=== PATIENT | male | born 1970 | race Caucasian/White ===

== ENCOUNTER → 2016-07-05 | Outpatient (CLI) | payer BC ==
[~2016-07-05] MED LIST: HYDROCODONE BIT1 T11 PO; NORCO 325 MG-51 TAB PO; PRILOSEC20 MG PO; TYLENOL325 M1 PO; VOLTAREN50 M1 PO; Zofran4 MG PO
== END | disposition home or self-care (01) ==
LOC: MRI 06:46
DX: M50.30 Other cervical disc degeneration, unspecified cervical region (principal); M47.892 Other spondylosis, cervical region; Z91.81 History of falling